=== PATIENT | female | born 1955 | race Caucasian/White ===

== ENCOUNTER → 2025-05-26 | Outpatient (REF) | payer MEDICARE ==
[~2025-05-26] MED LIST: IOPAMIDOL 370 MG/ML 100 ML INFUS..BTL INJ ONE; SODIUM CHLORIDE 0.9% 100 ML ONE
[2025-05-26 13:30] LABS: EST GLOMERULAR FILTRATION RATE 64.0 ML/MIN (>=60)
== END ==
LOC: CT 12:48
PROVIDERS: ATTEND Internal Medicine Interventional Cardiology
DX: I65.23 Occlusion and stenosis of bilateral carotid arteries (principal)
CPT/HCPCS: 36415; 70498; 82565; 84520; J7050; Q9967